=== PATIENT | female | born 1945 | race Caucasian/White ===

== ENCOUNTER → 2017-01-17 | Outpatient (CLI) | payer OTHER ==
[~2017-01-17] MED LIST: ACYCLOVIR 400400 MG PO; AMOXICILLIN 50500 M1 PO; APAP/CODEINE ELI5 M1 OR; ASPIRIN EC81 M1 PO; AUGMENTIN 875875 MG PO; BENICAR40 MG PO; CALCIUM 1,2001 EACH PO; CLEOCIN HCL150 MG PO; DAPSONE25 MG; DIFLUCAN100 MG PO; DILTIAZEM HCL60 MG PO; LEVOXYL50 MCG PO; LEVOXYL75 MCG PO; LIDOCAINE 22 %/30 GM; LIPITOR 20 MG T20 M1 PO; MUCINEX DM ER1 EAC1 PO; MULTIVITAMINS1 EAC7 PO; NEOSPORIN + P28.3 GM TOP; NORCO 5-325 TA1 EACH PO; PANTOPRAZOLE PO; PAXIL 20 MG TAB20 MG PO; PREDNISONE 10 M10 MG PO; PROBIOTIC1 EAC1 PO; PROTONIX 20 MG20 M1 PO; VITAMIN B12 PO; VITAMIN C500 M1 PO; VITAMIN D1000 UNI2 PO; VITAMIN E400 UNI6 PO; ZINC PO
== END ==
LOC: HYPER 13:15
DX: L97.822 Non-pressure chronic ulcer of other part of left lower leg with fat layer exposed (principal); L88 Pyoderma gangrenosum; I10 Essential (primary) hypertension; E78.5 Hyperlipidemia, unspecified; M19.90 Unspecified osteoarthritis, unspecified site; K21.9 Gastro-esophageal reflux disease without esophagitis; F03.90 Unspecified dementia, unspecified severity, without behavioral disturbance, psychotic disturbance, mood disturbance, and anxiety; F32.9 Major depressive disorder, single episode, unspecified; Z72.89 Other problems related to lifestyle

== ENCOUNTER 2017-02-18 06:04 | Day surgery (SDC) | payer OTHER ==
[~2017-02-18] VITALS: Ht 152.4 cm; Wt 67.6 kg
--- NOTE | ~2017-02-18 | EKG ---
[address] [place] [place] [address] ELECTROCARDIOGRAM REPORT Name: JOSE GUADALUPE VALADEZ Room #: 150-3 [facility]#: [id number] Admission: 02/18/17 Attend Phys: Faina Adler MD, Discharge: Date of : 43 Report #: [id number] THIS REPORT FOR: //name// [facility] Test Date: 2017-02-18 Test Time: 06:45:21 Pat Name: JOSE GUADALUPE VALADEZ Department: Room: 150 Gender: F Electronic Game Developer: NEETU : 1945 Requested By: Faina Adler Order Number: [id number] MD: Kin Bernard Measurements Intervals [place] Rate: 73 P: -2 PA: 150 QRS: -58 QRSD: 131 T: 33 QT: 423 QTc: 467 Interpretive Statements Sinus rhythm Probable left atrial enlargement RBBB and LAFB Left ventricular hypertrophy Compared to ECG 08/22/2014 19:12:40 No significant change was found Electronically Signed On 02-18-2017 8:13:29 ALLERGIST/PEDIATRIC PULMONOLOGIST by Kin Bernard [email or web address] <ELECTRONICALLY SIGNED> By: Kin Bernard MD, [facility] 02/18/1713 0645 Kin Bernard MD, [facility] /EPI
--- NOTE | ~2017-02-18 | O ---
[facility] [place] [address] OPERATIVE REPORT Name: JOSE GUADALUPE VALADEZ Room #: 150-3 [facility]..#: [id number] Admission: 02/18/17 Attend Phys: Faina Adler MD, Discharge: Date of : 43 Report #: [id number] THIS REPORT FOR: //name// CC: aFina Higginbotham DATE OF SERVICE: 02/18/2017 PREOPERATIVE DIAGNOSES: 1. Nonhealing wound to the left lower extremity. 2. Pyoderma gangrenosum. POSTOPERATIVE DIAGNOSES: 1. Nonhealing wound to the left lower extremity. 2. Pyoderma gangrenosum. PROCEDURE: Excisional debridement of skin, subcutaneous tissue, and muscle/fascia from the nonhealing left lower extremity wound ultimately measuring 6 x 4.5 cm in dimension (27 square cm). Preoperative wound measurements were similar as this debridement did not change the overall dimensions of the wound substantially. SURGEON: Faina Adler MD [employer] E[employer]EL[employer] SUPERVISOR: Bhupendra Turner MS3. ANESTHESIA: General endotracheal anesthesia. ESTIMATED BLOOD LOSS: Minimal (less than 2 mL). COMPLICATIONS: None appreciated. SPECIMENS: None. INDICATIONS: The patient is a 71-year-old female with a history of pyoderma gangrenosum at other sites that have attain wound healing, but unfortunately she has developed a new wound to the outer aspect of her left lower leg that has been nonhealing and extremely painful. As such, indication is for light debridement today with the [employer] ultrasonic debridement tool to arrive at healthy tissue throughout. DESCRIPTION OF PROCEDURE: After explaining the risks, benefits and alternatives of the procedure with the patient in detail and obtaining consent, the patient was brought to the operating room and placed supine on the operating room table. After conducting a thorough timeout procedure, verifying correct patient and procedure, the patient was given general endotracheal anesthesia. Once adequate [address] [address] OPERATIVE REPORT Name: JOSE GUADALUPE VALADEZ Room #: 150-3 [facility].#: [id number] Admission: 02/18/17 Attend Phys: Faina Adler MD, Discharge: Date of : 43 Report #: [id number] anesthesia was obtained, she was placed in the right lateral decubitus position with all pressure points appropriately padded and her left lower leg was prepped and draped in standard surgical sterile fashion. The [employer] ultrasonic debridement tool was now used to circumferentially debride all nonviable tissue from the entirety of the wound carried down to the muscle/fascia level. Electrocautery was used to maintain hemostasis at certain intervals. At the completion of the Misonix debridement, there was no evidence of remaining fibrinous exudate or necrotic tissue throughout. I did spray thrombin overlying the wound and held pressure for 5 minutes to attain complete hemostasis, so as to avoid using significant electrocautery. The wound was now dressed with Adaptic, Telfa and 4 x 4s with a light Kerlix wrap. At the end of the procedure, all instrument, needle and sponge counts were correct. The patient tolerated the procedure without incident, was awakened in the operating room and transitioned to the recovery room in stable condition with no apparent complications. <ELECTRONICALLY SIGNED> By: Faina Adler MD, FACS 02/18/17 1133 [id number] [id number] Faina Adler MD, FACS /nt
[~2017-02-18 06:04] MED LIST changes: +CALCIUM 600 +1 EAC1 PO; +CENTRUM SILVER1 EAC4 PO; +CO Q-10100 MG PO; +ESCITALOPRAM OX20 MG PO; +FISH OIL 1,001000 M2 PO; +GLUCOSAMINE &1 EAC1 PO; +HYDROCHLOROTHIA25 M2 PO; +HYDROCODONE-AP1 EAC6 PO; +LUTEIN40 MG PO; +MELATONIN3 MG PO; +TURMERIC500 M2 PO; +VITAMINC500 PO
[2017-02-18 07:14] LABS: CALCIUM 9.4 mg/dL (8.5-10.1); CREATININE 0.7 mg/dL (0.6-1.0); POTASSIUM 3.5 mmol/L (3.5-5.1)
[2017-02-18 07:32] VITALS: BP 126/68
[2017-02-18] MEDS ORDERED: NEURONTIN 300300 M1 PO (08:35)
[2017-02-18 09:02] VITALS: BP 126/68
== END 2017-02-18 10:00 | disposition home or self-care (01) ==
LOC: TBA 06:04 → OR 06:04
PROVIDERS: Surgery
DX: L97.828 Non-pressure chronic ulcer of other part of left lower leg with other specified severity (principal); L88 Pyoderma gangrenosum; I10 Essential (primary) hypertension; E78.5 Hyperlipidemia, unspecified; E03.9 Hypothyroidism, unspecified; K21.9 Gastro-esophageal reflux disease without esophagitis; F32.89 Other specified depressive episodes; F41.8 Other specified anxiety disorders; Z79.899 Other long term (current) drug therapy; Z79.891 Long term (current) use of opiate analgesic; Z98.890 Other specified postprocedural states
CPT/HCPCS: 50010; 50101; 50386; 50403; 53353; 53354; 62110; 62900; 70005

== ENCOUNTER → 2017-03-07 | Outpatient (CLI) | payer OTHER ==
[~2017-03-07] MED LIST changes: +NEURONTIN 300300 M1 PO
== END ==
LOC: HYPER 02-13 13:46
DX: L97.822 Non-pressure chronic ulcer of other part of left lower leg with fat layer exposed (principal); L88 Pyoderma gangrenosum; E78.5 Hyperlipidemia, unspecified; I10 Essential (primary) hypertension; K21.9 Gastro-esophageal reflux disease without esophagitis; M19.90 Unspecified osteoarthritis, unspecified site; F03.90 Unspecified dementia, unspecified severity, without behavioral disturbance, psychotic disturbance, mood disturbance, and anxiety; Z72.89 Other problems related to lifestyle